=== PATIENT | female | born 1960 | race Caucasian/White ===

== ENCOUNTER → 2017-11-23 15:25 | Outpatient (REF) | payer MEDICARE, MEDICAID, SELFPAY ==
[2017-11-23 19:00] LABS: Basophils % 0.3 % (0.1-2.0); Eosinophils # 0.1 K/mm3 (0.0-0.4); Eosinophils % 0.8 % (0.1-12.0); Hematocrit 37.8 % (37.0-47.0); Hemoglobin 12.1 g/dL (12.2-16.2); Lymphocytes # 2.9 K/mm3 (0.7-4.5); Lymphocytes % 28.9 K/mm3 (10-50); Mean Corpuscular HGB Conc 32.1 g/dL (31.8-35.4); Mean Corpuscular Hemoglobin 31.2 pg (27.0-31.2); Mean Corpuscular Volume 97.2 fl (81-99); Mean Platelet Volume 8.9 fl (7.4-10.4); Monocytes # 0.5 K/mm3 (0.1-1.0); Monocytes % 5.1 % (1.7-9.3); Neutrophils # 6.5 K/mm3 (1.8-7.8); Neutrophils % 64.9 % (37.0-80.0); Platelet Count 281 K/mm3 (142-424); Red Blood Count 3.88 M/mm3 (4.20-5.40); Red Cell Distribution Width 12.8 % (11.5-17.5)
[2017-11-23 19:56] LABS: Alanine Aminotransferase 19 U/L (12-78); Albumin Level 3.5 gm/dL (3.4-5.0); Albumin/Globulin Ratio 0.9 (1.1-1.8); Alkaline Phosphatase 76 U/L (46-116); Anion Gap 16.2 mEq/L (5-15); Aspartate Amino Transferase 14 U/L (15-37); Bilirubin,Total 0.2 mg/dL (0.2-1.0); Blood Urea Nitrogen 14 mg/dL (7-18); Calcium 8.6 mg/dL (8.5-10.1); Carbon Dioxide 24 mmol/L (21.0-32.0); Chloride 102 mmol/L (98-107); Creatinine,Serum 0.93 mg/dL (0.55-1.02); Estimated Glomerular Filt Rate 62 ml/min (>60); Free T4 (Free Thyroxine) 1.15 ng/dl (0.76-1.46); GFR (African American) 75 ML/MIN (>60); Globulin 3.8 gm/dl (1.3-3.2); Glucose 73 mg/dL (74-106); Potassium 5.2 mmoL/L (3.5-5.1); Sodium 137 mmol/L (136-145); Thyroid Stimulating Hormone 0.91 uIU/ml (0.358-3.740); Total Protein,Serum 7.3 gm/dL (6.4-8.2)
[2017-11-23 20:35] LABS: Hemoglobin A1C 6.4 % (0.0-7.0)
[2017-11-25 08:24] LABS: Hep A Ab, IgM Negative (Negative); Hepatitis B Core Antibody IgM Negative (Negative); Hepatitis B Surface Antigen Negative (Negative)
[2017-11-26 06:26] LABS: Hepatitis C Antibody >11.0 s/co ratio (0.0-0.9)
== END ==
LOC: LAB 15:25
PROVIDERS: Visit Provider Emergency Medicine
DX: E11.9 Type 2 diabetes mellitus without complications (principal); R53.83 Other fatigue; R35.0 Frequency of micturition
CPT/HCPCS: 80053; 80074; 83036; 84439; 84443; 85025; 87086

== ENCOUNTER → 2017-11-29 15:21 | Outpatient (REF) | payer MEDICARE, MEDICAID, SELFPAY | LOC: LAB 15:21 | PROVIDERS: Visit Provider Emergency Medicine | DX: R76.8 Other specified abnormal immunological findings in serum (principal); R94.5 Abnormal results of liver function studies | CPT/HCPCS: 87522 ==

== ENCOUNTER → 2017-12-07 11:00 | Outpatient (CLI) | payer MEDICARE, MEDICAID, SELFPAY ==
--- NOTE | 2017-12-07 16:38 | MM_ITS ---
MM Dig screening mamm BI w/CAD CAD Screening ORDERING PHYSICIAN : Murray Chapman MD PATIENT AGE: 57 years GENDER: Female COMPARISON: Previous mammograms: May 2016, 2014, 2014 also June 2009 film screen study INDICATION: Routine screening. No hormones no new complaints. Noncontributory family history TECHNIQUE: Standard CC and MLO images were obtained. R2 CAD reviewed. FINDINGS: Moderately dense breast tissue is seen towards the superior right and left breast. However the overall pattern is similar to previous studies. Follow-up RIGHT BREAST:The same pattern of dense tissue is observed no significant new findings. Stable minimal nodularity upper-outer quadrant LEFT BREAST:Dense tissue in the deep central breast is stable. IMPRESSION: Stable bilateral mammogram no new areas concern. Bilateral follow-up one year recommended BI-RADS Category: 2 Benign Finding(s) RECOMMENDED FOLLOW-UP: 1YR - 1 YEAR FOLLOW-UP (A letter has been sent to the patient regarding results of the study.)
== END ==
PROVIDERS: PCP Emergency Medicine; Visit Provider Emergency Medicine
DX: Z12.31 Encounter for screening mammogram for malignant neoplasm of breast (principal)
CPT/HCPCS: 77067

== ENCOUNTER → 2017-12-10 08:35 | Outpatient (CLI) | payer MEDICARE, MEDICAID, SELFPAY ==
[2017-12-10 09:03] LABS: Blood Urea Nitrogen 13 mg/dL (7-18); Creatinine,Serum 1.06 mg/dL (0.55-1.02); Estimated Glomerular Filt Rate 54 ml/min (>60); GFR (African American) 65 ML/MIN (>60)
--- NOTE | 2017-12-10 09:29 | CT_ITS ---
CT abdomen pelvis wo/w con COMPARISON: CT scan abdomen pelvis 05/13/2012 HISTORY: Hematuria TECHNIQUE: Multiaxial scans obtained from hemidiaphragms to the pelvic floor and were performed initially without IV contrast followed by repeat scans after injection of IV contrast. No oral contrast was used. Sagittal and coronal reformats were evaluated as well. FINDINGS: The lower lung martinez are clear. Cardiac size is normal. The liver spleen stomach and pancreas appear normal. There has been a previous cholecystectomy. The adrenal glands are normal. The kidneys are normal size and there are no calculi and is no obstructive uropathy. Following IV contrast of a symmetrical function of both kidneys. There are no definite calculi seen along the course of either ureter. Small bowel appears normal. I do not definitely identify the appendix but there are no pericecal inflammatory changes. There is large amount stool in the cecum and ascending colon and transverse colon. The uterus is normal in size and retroverted. Urinary bladder is decompressed but otherwise appears normal. There is no free fluid in the pelvis. IMPRESSION: Findings of mild constipation, no definite renal or ureteral calculi identified
--- NOTE | 2017-12-10 11:16 | HMH.ITSHM ---
alondronate losartan cipadaloxacin levothryroxine janumet gapapentin diazepam
== END ==
PROVIDERS: Family Provider Family Medicine; PCP Emergency Medicine; Visit Provider Urology
DX: R31.9 Hematuria, unspecified (principal)
CPT/HCPCS: 36415; 74170; 82565; 84520; Q9967

== ENCOUNTER 2017-12-21 08:25 | Day surgery (SDC) | payer MEDICARE, MEDICAID, SELFPAY ==
[2017-12-21] VITALS (10 sets, daily range): BP systolic 72–120; BP diastolic 47–64; PULSE 62–85; RESP 14–20; TEMP 36.7–37.3; O2SAT 96–99; BMI 24.5
[2017-12-21 09:21] LABS: POC Glucose,Bedside 98 mg/dL (70-110)
--- NOTE | 2017-12-21 09:47 | P.PN_ITS ---
[facility] Anesthesia Checklist - Structural Data Admitted From: Home Planned Operative Procedure/s: cystoscopy Consent for Planned Operative Procedure(s) Verified: Yes Verified Documents: Surgical Consent - Airway Assessment C-Spine Mobility Assessed: Yes TMJ Mobility Assessed: Yes Dentition: Edentulous - Neurological Assessment Level of Consciousness: Awake, Alert - Anesthesia Plan Anesthesia Risk discussed: Yes Anesthesia Plan: Verified ASA Class: III Anesthesia Type: General [facility] Anesthesia HX I have reviewed the patient's past medical history: Yes Medical History: Reports:: Anxiety, Diabetes Mellitus Type 2, Hyperlipidemia, Hypertension Denies:: Cancer, Diabetes Mellitus Type 1, Internal Pacemaker, MRSA, Seizures Other Medical History: Reports: Hypothyroidism, Other. Denies: Blood Transfusion Reaction Laterality Cases: Left: Arthroscopy Knee Other Surgeries: Yes: Angiogram, Cardiac Surgery, Mitral Valve Replacement, Other. No: Pacemaker Amputation: No Fractures: Yes *Family Hx:: Cancer, Hypertension
--- NOTE | 2017-12-21 10:59 | P.PN_ITS ---
[facility] Anesthesia Record Part I Intake, IV Amount: 1,000 Estimated blood loss (mL): 0 Urine output (mL): 0 Blood Pressure: 120/55 SaO2: 96 Pulse Rate: 85 Respiratory Rate: 14 Temperature: 98.0 F Patient is:: Awake, Stable Stable to PACU at:: 10:55
--- NOTE | 2017-12-21 10:59 | HMH.ANESII ---
[facility] Anesthesia Record Part II Discharge Time: 11:25 Destination: [facility] PACU nurse assessment reviewed?: Yes Patient Condition:: Good Anesthesia Complications:: None
--- NOTE | 2017-12-21 11:00 | P.PN_ITS ---
[facility] Anesthesia Record Part II Discharge Time: 11:25 Destination: [facility] PACU nurse assessment reviewed?: Yes Patient Condition:: Good Anesthesia Complications:: None
--- NOTE | 2017-12-21 12:53 | HMH.OPNOTE ---
Date of procedure: 12/21/17 Pre-op Diagnosis:: hematuria/ urinary frequency Post-op Diagnosis:: Same with urethral stenosis Procedure performed:: Cystoscopy with urethral dilation and vaginoscopy Surgeon:: Moiz Patel MD TYING MACHINE OPERATOR:: Abhishek Malone Anesthesia: GETA Estimated blood loss (mL): 0 Clinical Note:: Patient is here for evaluation of reported blood on the toilet paper after voiding. sHe also has history of urinary frequency been on oxybutynin chloride with slight improvement. Is here today for cystoscopy. She has a very long smoking history. Is never had bloody urine. Operative findings:: Normal cystoscopy other than moderate urethral stenosis Operative note:: After satisfactory general anesthesia she was carefully placed in the dorsolithotomy position. The genital area was prepped and draped in normal fashion. He did have a thin whitish vaginal discharge prior to prep. External genitalia was otherwise unremarkable. A 20 [place] cystoscopy sheath was introduced with the obturator. The bladder was inspected with both 30 and 70? lenses. There were no mucosal abnormalities. Ureteral orifice ease were situated in the normal position and appeared to effluxed clear urine. The urethra was snug on the 20 [place] cystoscopy sheath. Bladder was drained and cystoscope removed. Xylocaine jelly was instilled in the urethra. The urethra was calibrated up to 28 [place] with the [place] sounds. Vaginoscopy was performed. No obvious vaginal masses. She appear to have some fluid arising from the right apex of the vagina. this may be the vaginal cuff. Condition: stable Disposition: PACU Complications:: None, I recommend she see gynecology for further evaluation of her vaginal discharge. Is placed on Bactrim double strength twice daily for 2 weeks. She will follow-up with me in 1 month
--- NOTE | 2017-12-21 12:59 | P.OP_ITS ---
Date of procedure: 12/21/17 Pre-op Diagnosis:: hematuria/ urinary frequency Post-op Diagnosis:: Same with urethral stenosis Procedure performed:: Cystoscopy with urethral dilation and vaginoscopy Surgeon:: Moiz Patel MD BRAZING MACHINE TENDER:: Abhishek Malone Anesthesia: GETA Estimated blood loss (mL): 0 Clinical Note:: Patient is here for evaluation of reported blood on the toilet paper after voiding. sHe also has history of urinary frequency been on oxybutynin chloride with slight improvement. Is here today for cystoscopy. She has a very long smoking history. Is never had bloody urine. Operative findings:: Normal cystoscopy other than moderate urethral stenosis Operative note:: After satisfactory general anesthesia she was carefully placed in the dorsolithotomy position. The genital area was prepped and draped in normal fashion. He did have a thin whitish vaginal discharge prior to prep. External genitalia was otherwise unremarkable. A 20 Iranian cystoscopy sheath was introduced with the obturator. The bladder was inspected with both 30 and 70? lenses. There were no mucosal abnormalities. Ureteral orifice ease were situated in the normal position and appeared to effluxed clear urine. The urethra was snug on the 20 Iranian cystoscopy sheath. Bladder was drained and cystoscope removed. Xylocaine jelly was instilled in the urethra. The urethra was calibrated up to 28 [place] with the [place] sounds. Vaginoscopy was performed. No obvious vaginal masses. She appear to have some fluid arising from the right apex of the vagina. this may be the vaginal cuff. Condition: stable Disposition: PACU Complications:: None, I recommend she see gynecology for further evaluation of her vaginal discharge. Is placed on Bactrim double strength twice daily for 2 weeks. She will follow-up with me in 1 month
== END 2017-12-21 12:25 | disposition home or self-care (01) ==
LOC: OR 08:27
PROVIDERS: Family Provider Family Medicine; PCP Emergency Medicine; Visit Provider Urology
PROC: 0TBB8ZX Excision of Bladder, Via Natural or Artificial Opening Endoscopic, Diagnostic (ICD-10-PCS; CPT 52204; principal; 2017-12-21 10:00)
DX: N35.9 Urethral stricture, unspecified (principal); N89.8 Other specified noninflammatory disorders of vagina; E11.9 Type 2 diabetes mellitus without complications; Z79.899 Other long term (current) drug therapy; Z72.0 Tobacco use
CPT/HCPCS: 52281; 57452; 82962; J1956

== ENCOUNTER → 2017-12-29 09:03 | Outpatient (CLI) | payer MEDICARE, MEDICAID, SELFPAY ==
[2017-12-29 13:56] LABS: Amphetamine/Metha Screen,Urine Negative ng/mL (<1000); Barbiturates Screen,Urine Negative ng/mL (<200); Benzodiazepines Screen,Urine Positive ng/mL (200); Cannabinoid Screen,Urine Positive ng/mL (<50); Cocaine Screen,Urine Negative ng/g (<300); Methadone Screen,Urine Negative ng/mL (<300); Opiate Screen,Urine Positive ng/mL (<300); Phencyclidine Screen,Urine Negative ng/mL (<25)
== END ==
PROVIDERS: Visit Provider Emergency Medicine
DX: Z79.899 Other long term (current) drug therapy (principal)
CPT/HCPCS: 80305

== ENCOUNTER → 2018-01-12 10:16 | Outpatient (REF) | payer MEDICARE, MEDICAID, SELFPAY ==
[2018-01-12 19:13] LABS: Amphetamine/Metha Screen,Urine Negative ng/mL (<1000); Barbiturates Screen,Urine Negative ng/mL (<200); Benzodiazepines Screen,Urine Positive ng/mL (200); Cannabinoid Screen,Urine Positive ng/mL (<50); Cocaine Screen,Urine Negative ng/g (<300); Methadone Screen,Urine Negative ng/mL (<300); Opiate Screen,Urine Positive ng/mL (<300); Phencyclidine Screen,Urine Negative ng/mL (<25)
== END ==
LOC: LAB 10:16
PROVIDERS: Visit Provider Emergency Medicine
DX: Z79.899 Other long term (current) drug therapy (principal)
CPT/HCPCS: 80305

== ENCOUNTER 2018-01-19 13:30 | Outpatient (RCR) | payer MEDICARE, MEDICAID, SELFPAY ==
--- NOTE | 2017-12-20 11:39 | HMH.PTOPEV ---
Rehab Outpatient Evaluation Rehab OP Evaluation Start: 12/20/17 11:31 Freq: Status: Active Protocol: Document 12/20/17 11:31 RAYSHAWN (Rec: 12/20/17 11:38 RAYSHAWN [id number]) Electronically Signed By Bobby Alvarez, PT 12/20/17 11:31 Outpatient Therapy Subjective History Subjective History Pt reports h/o chronic LBP for ~5 yrs. Pt reports insidious onset with this most recent episode of LBP beginning ~3 months, which pt reports radiates from midline into R and L lumbar paraspinals. Pt reports recent MRI of lumbar spine, but is unsure of results. Chief Complaint Pain Stiff Symptom Type Ache Throb Sharp Dull Numbness Tingling Symptoms Relieved By Nothing Symptoms Aggravated By Sitting Standing Walking Lifting Prior Functional Limitations Lifting Housework Sleeping Standing Sitting Walking Bending/Stooping Current Functional Limitations Lifting Housework Sleeping Standing Sitting Walking Bending/Stooping Symptom Description Constant and Continuous Level of pain today (0-10) 5 Pain scale - at its best (0-10) 5 Pain scale - at its worst (0-10) 8 Lumbopelvic Eval Posture Thoracic Spine Posture Standing Position Flattened Lumbar Spine Posture Standing Position Flattened Assistive device Assistive Devices Straight Cane Gait Observation General Gait Pattern Observation Antalgic Gait Palapation tenderness bilateral thoracic spinal tenderness Yes: 3/4 lumbar spinal tenderness Yes: 3/4 paraspinal tenderness Yes: 3/4 buttock tenderness Yes: 3/4 Accessory Movement T-spine Vertebrae Accessory Movements Central P/A [place] that Elicit Symptoms T10 bilateral T11 bilateral T12 bilateral
--- NOTE | 2018-01-17 15:49 | HMH.RHREAS ---
Rehab Reassessment Rehab OP Re-assessment Start: 01/17/18 15:38 Freq: Status: Active Protocol: Document 01/17/18 15:38 RAYSHAWN (Rec: 01/17/18 15:49 RAYSHAWN [id number]) Electronically Signed By Bobby Alvarez, PT 01/17/18 15:38 Rehab Re-assessment Subjective Subjective Pt reports 4/10 LBP on VAS, and feels 75% better since I EVAL Objective Objective Notes AROM: L-SPINE FLX 0-50, EXT 0- 10, L SB 0-18, R SB 0-25 MMT: B HIP FLX 4/5, B KNEE EXT 5/5, B KNEE FLX 4+/5, R DF 5/ 5, L DF 4/5 TTP: B LUMBAR PARA. 2/4, B PIRI MM 1/4 Assessment Progress Assessment Progressing as Expected Assessment Notes PT W/IMPROVED ROM, STRENGTH, AND TTP Patient goals met STGS 6/7 LTGS 8 Goals Not Met STGS 10/10, LTGS 04/10 Plan Plan PT TO CONT. W/SKILLED P.T. TO MAKE FURTHER IMPROVEMENTS W/ ROM, STRENGTH, AND TTP TO ALLOW FOR OPTIMAL FUNCTION Frequency of Therapy 1-2X/WK Duration of therapy 2-4 WEEKS Time and Billing Re-Eval Time 15 Re-Eval Billing Units 1 PHYSICIAN CERTIFICATION: I certify the specified therapy services for Vanesa Massey are required, authorized, and reviewed every 30 days.
== END 2018-01-19 13:31 | disposition home or self-care (01) ==
LOC: PT 13:30
PROVIDERS: Family Provider Family Medicine; PCP Emergency Medicine; Visit Provider Emergency Medicine
DX: M54.9 Dorsalgia, unspecified (principal)
CPT/HCPCS: 97010; 97014; 97035; 97110; 97164; G0283

== ENCOUNTER 2018-01-27 08:19 | Observation (INO) ==
[2018-01-27 08:38] LABS: Basophils # 0.1 K/mm3 (0-0.2); Basophils % 0.4 % (0.1-2.0); Eosinophils # 0.1 K/mm3 (0.0-0.4); Eosinophils % 0.3 % (0.1-12.0); Hematocrit 43.4 % (37.0-47.0); Hemoglobin 13.3 g/dL (12.2-16.2); Lymphocytes # 3.9 K/mm3 (0.7-4.5); Lymphocytes % 23.5 K/mm3 (10-50); Mean Corpuscular HGB Conc 30.7 g/dL (31.8-35.4); Mean Corpuscular Hemoglobin 30.8 pg (27.0-31.2); Mean Corpuscular Volume 100.3 fl (81-99); Mean Platelet Volume 7.7 fl (7.4-10.4); Monocytes % 5.8 % (1.7-9.3); Neutrophils # 11.4 K/mm3 (1.8-7.8); Platelet Count 442 K/mm3 (142-424); Red Blood Count 4.33 M/mm3 (4.20-5.40); White Blood Count 16.3 K/mm3 (4.8-10.8)
[2018-01-27 09:00] LABS: Albumin Level 4.4 gm/dL (3.4-5.0); Albumin/Globulin Ratio 0.9 (1.1-1.8); Anion Gap 21.1 mEq/L (5-15); Bilirubin,Total 0.3 mg/dL (0.2-1.0); Calcium 9.7 mg/dL (8.5-10.1); Globulin 4.8 gm/dl (1.3-3.2); Potassium 4.1 mmoL/L (3.5-5.1); Salicylate 4.3 mg/dL (2.8-20.0); Thyroid Stimulating Hormone 1.75 uIU/ml (0.358-3.740); Total Protein,Serum 9.2 gm/dL (6.4-8.2)
[2018-01-27 09:33] LABS: Lymphocytes % 19 % (10-50); Monocytes % 4 % (2-9); Neutrophils % 75 % (42-76); Total Cells Counted 100
--- NOTE | 2018-01-27 11:18 | Emergency Department Note ---
ED Disposition Clinical Impression: Dehydration, Sinus tachycardia, Ted, Iatrogenic hypotension Acute renal failure (ARF) Qualifiers: Acute renal failure type: unspecified Qualified Code(s): N17.9 - Acute kidney failure, unspecified Disposition: Admitted As Inpatient Condition on Discharge: Fair Time of Disposition: 11:50 - Critical Care Critical Care Time: Yes Attestation: On 01/27/18, the high probability of a clinically significant, sudden or life threatening deterioration of the following system(s) required my full and direct attention, intervention and personal management. The time I documented below is in addition to time spent performing reported procedures but includes the following listed in this critical care notation. Total Critical Care Time: 120 Vital system(s) involved:: Renal Failure My critical care processes included: Assessment & monitoring of V/S, Initial and Re-exams, Data Review/Interpretation, Coordinating Care, Medication Orders and management, Documentation Medical Decision Making - Medical Records Medical records reviewed: Yes: I reviewed the patient's medical records. - Willie Inquiry Pt receiving controlled substance: No Vital Signs: 01/27/18 08:20 01/27/18 10:50 01/27/18 13:05 Temperature 99.2 F 99.2 F Temperature Source Oral Oral Pulse Rate 70 Pulse Rate [Left Radial] 134 H Respiratory Rate 24 20 Blood Pressure 104/66 Blood Pressure [Right Arm] 154/110 104/66 Blood Pressure Mean [Right Arm] 124 78 Blood Pressure Source Automatic Cuff Blood Pressure Source [Right Arm] Automatic Cuff Blood Pressure Position Sitting Blood Pressure Position [Right Arm] Sitting 02 Sat by Pulse Oximetry 97 Oxygen Delivery Method Room Air Room Air 01/27/18 13:30 Temperature Temperature Source Pulse Rate Pulse Rate [Left Radial] 68 Respiratory Rate 16 Blood Pressure Blood Pressure [Right Arm] 94/65 Blood Pressure Mean [Right Arm] 74 Blood Pressure Source Blood Pressure Source [Right Arm] Automatic Cuff Blood Pressure Position Blood Pressure Position [Right Arm] Sitting 02 Sat by Pulse Oximetry 94 L Oxygen Delivery Method Room Air - Lab Data Lab results reviewed: Yes: I reviewed the patient's lab results. Lab Results 01/27/18 08:15: WBC 16.3 H, RBC 4.33, Hgb 13.3, Hct 43.4, MCV 100.3 H, MCH 30.8 , MCHC 30.7 L, RDW 14.0, Plt Count 442 H, MPV 7.7, Neut % (Auto) 70.0, Lymph % ( Auto) 23.5, Haines % (Auto) 5.8, Eos % (Auto) 0.3, Baso % (Auto) 0.4, Neut # (Auto ) 11.4 H, Lymph # (Auto) 3.9, Haines # (Auto) 1.0, Eos # (Auto) 0.1, Baso # (Auto ) 0.1, Total Counted 100, Neutrophils % (Manual) 75, Band Neutrophils % 2.0, Lymphocytes % (Manual) 19, Monocytes % (Manual) 4, Platelet Estimate Slight increase 01/27/18 08:15: Sodium 139, Potassium 4.1, Chloride 100, Carbon Dioxide 22, Anion Gap 21.1 H, BUN 25 H, Creatinine 2.19 H, Estimated Creat Clear 38, Estimated GFR 23 L, Est GFR ( Amer) 28 L, Glucose 142 H, Calcium 9.7, Total Bilirubin 0.3, AST 24, ALT 20, Alkaline Phosphatase 83, Total Protein 9.2 H D, Albumin 4.4, Globulin 4.8 H, Albumin/Globulin Ratio 0.9 L, TSH 1.75 D, Salicylates 4.3, Acetaminophen 0 L Result diagrams: 01/27/18 08:15 01/27/18 08:15 Orders (Tests/Meds): ED MEDICATIONS Generic Name Dose Route Start Last Admin Trade Name Freq PRN Reason Stop Dose Admin Hydrocodone Bitart/Acetaminophen 1 tab 01/27/18 13:58 [place] 5/325mg Tablet PO 02/26/18 13:57 TID PRN Moderate Pain Atorvastatin Calcium 20 mg 01/28/18 09:00 Lipitor 20mg Tablet PO 02/27/18 08:59 DAILY MAMTA Fluoxetine HCl 30 mg 01/28/18 09:00 Prozac 10mg Capsule PO 02/27/18 08:59 DAILY MAMTA Gabapentin 800 mg 01/27/18 13:58 01/27/18 15:46 Neurontin 400mg Capsule PO 02/26/18 13:57 800 mg TID MAMTA Administration Lactated Ringer's 1,000 mls @ 125 mls/hr 01/27/18 13:58 01/27/18 16:15 Lactated Ringer's 1000 Ml Bag IV 02/26/18 13:57 125 mls/hr .Q8H MAMTA Administration Irbesartan 150 mg 01/28/18 09:00 Avapro 150mg Tablet PO 02/27/18 08:59 DAILY MAMTA Levothyroxine Sodium 25 mcg 01/28/18 09:00 Synthroid 25mcg (0.025mg) Tablet PO 02/27/18 08:59 DAILY MAMTA Nystatin 0 gm 01/27/18 16:15 01/27/18 16:15 Nystatin Cr 100,000 Units/Gm 30gm TP 02/26/18 16:14 30 gm BID MAMTA Administration Oxybutynin Chloride 10 mg 01/28/18 09:00 Ditropan 5mg Tablet PO 02/27/18 08:59 DAILY MAMTA Sodium Chloride 10 ml 01/27/18 13:58 Saline Flush 10ml Syringe IV 02/26/18 13:57 NEEDED PRN Maintain IV Site Discontinued Medications Generic Name Dose Route Start Last Admin Trade Name Freq PRN Reason Stop Dose Admin Haloperidol Lactate 5 mg 01/27/18 09:28 01/27/18 09:30 Haldol 5mg/Ml Vial IM 01/27/18 09:29 5 mg ONCE ONE Administration Sodium Chloride 500 mls @ 999 mls/hr 01/27/18 08:30 01/27/18 08:31 Sod Chlor 0.9% 1000ml Bag IV 01/27/18 09:00 999 mls/hr .Q31M MAMTA Administration Sodium Chloride 500 mls @ 999 mls/hr 01/27/18 09:00 01/27/18 09:03 Sod Chlor 0.9% 1000ml Bag IV 01/27/18 09:30 Not Given .Q31M MAMTA Sodium Chloride 500 mls @ 999 mls/hr 01/27/18 09:00 01/27/18 09:03 Sod Chlor 0.9% 1000ml Bag IV 01/27/18 09:30 Not Given .Q31M MAMTA Lactated Ringer's 1,000 mls @ 999 mls/hr 01/27/18 09:15 01/27/18 09:40 Lactated Ringer's 1000 Ml Bag IV 01/27/18 10:15 999 mls/hr .Q1H1M MAMTA Administration Lactated Ringer's 1,000 mls @ 999 mls/hr 01/27/18 09:15 01/27/18 11:19 Lactated Ringer's 1000 Ml Bag IV 01/27/18 10:15 999 mls/hr .Q1H1M MAMTA Administration Lactated Ringer's 1,000 mls @ 999 mls/hr 01/27/18 09:15 01/27/18 10:41 Lactated Ringer's 1000 Ml Bag IV 01/27/18 10:15 999 mls/hr .Q1H1M MAMTA Administration Lactated Ringer's 1,000 mls @ 999 mls/hr 01/27/18 13:15 01/27/18 13:24 Lactated Ringer's 1000 Ml Bag IV 01/27/18 14:15 999 mls/hr .Q1H1M MAMTA Administration Lactated Ringer's 1,000 mls @ 999 mls/hr 01/27/18 13:58 01/27/18 15:38 Lactated Ringer's 1000 Ml Bag IV 01/27/18 14:15 999 mls/hr .Q1H1M MAMTA Administration Non-Formulary Medication 70 mg 01/27/18 13:58 Alendronate Sodium [Fosamax] PO 02/26/18 13:57 QWEEK MAMTA Non-Formulary Medication 1 tab 01/27/18 21:00 Sitagliptin Phos/Metformin Hcl [Janumet 50-500 Mg Tablet] PO 02/26/18 20:59 BID MAMTA Ziprasidone 20 mg 01/27/18 08:29 01/27/18 09:03 Geodon 20mg Capsule PO 01/27/18 08:30 20 mg ONCE ONE Administration ORDERS Category Date Time Status Urine Culture(cathed specimen) Routine Micro 01/27/18 13:35 Received - Physician Consults Physician Consulted: BALTA Griffin covering for Dr Chapman Time: 11:10 Reason -: Admission, Pt condition Comment/Response: Advise of patient's presentation and findings, agreeable with hospitalization. - Reevaluation(s) Time: 10:45 Reevaluation #1: Patient asleep, hypertensive after receiving Haldol and Geodon, will continue to bolus her with IV fluids. She appears clinically dehydrated, with dry mucous membranes, tachycardic, clearly in need of iv fluids. Psych HPI - General Chief Complaint: Psychiatric Symptoms Stated Complaint: psych Time Seen by Provider: 01/27/18 09:10 Mode of Arrival: Ambulatory Source of Information: Patient Limitations: No Limitations Description of Symptoms (Recalled from ER Triage Doc. by RN): to ed per ambulance police called squad due to abnormal behavior. pt admits manic behavior denies any c/o - History of Present Illness HPI Narrative: This is a 57-year-old female patient brought to the emergency room by EMS [place] the [place] in a state of agitation, manic, rambling. Patient advised that she ran out of money and she could not afford to go to the pharmacy to pickle maker her medications or eat for the past few days. She is very poor historian. She has a history of bipolar disorder. He denies any suicidal or homicidal ideation. She displays obvious flight of ideas. Onset (ago): day(s) (2) History of same: Yes Relieving factors: none Exacerbating factors: none Context: not taking psychiatric medications Associated psychiatric symptoms: racing thoughts Associated symptoms: denies other symptoms Treatments prior to arrival: none - Related Data Home Medications Medication Instructions Recorded Confirmed oxybutynin chloride ER 10 mg 10 mg PO DAILY tab 11/16/17 01/27/18 tablet,extended release 24 hr sitagliptin 50 mg-metformin 500 mg 1 tab PO BID 11/16/17 01/27/18 tablet Fluoxetine HCl 30 mg PO DAILY 12/21/17 01/27/18 alendronate 70 mg tablet 70 mg PO WEEKLY 12/29/17 01/27/18 Atorvastatin Calcium [Lipitor 20mg 20 mg PO DAILY 01/27/18 01/27/18 Tablet] Previous Rx's Medication Instructions Recorded gabapentin 800 mg tablet 800 mg PO TID 30 Days #90 tab 12/29/17 losartan 100 mg tablet 100 mg PO DAILY #90 tab 01/11/18 hydrocodone 5 mg-acetaminophen 325 1 tab PO TID PRN 21 Days #63 tab 01/12/18 mg tablet levothyroxine 25 mcg tablet 25 mcg PO DAILY 90 Days #90 tab 01/25/18 Allergies Allergy/AdvReac Type Severity Reaction Status Date / Time aspirin [ASPIRIN] Allergy Mild Verified 01/12/18 15:54 Penicillins Allergy Mild Verified 01/12/18 15:54 [facility] History I have reviewed the patient's past medical history: Yes Medical History: Reports:: Anxiety, Diabetes Mellitus Type 2, Hyperlipidemia, Hypertension Denies:: Cancer, Diabetes Mellitus Type 1, Internal Pacemaker, MRSA, Seizures Other Medical History: Reports: Hypothyroidism, Other. Denies: Blood Transfusion Reaction Comment: Hep C,. Aortic aneurysm. Hypercholesterolemia Laterality Cases: Left: Arthroscopy Knee Other Surgeries: Yes: Angiogram, Cardiac Surgery, Mitral Valve Replacement, Other. No: Pacemaker Amputation: No Fractures: Yes Comment: 1973- Heart surgery valve problems. 2001- Lt. broken leg. 2005- Lap Cholecystectomy. 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 - Social History Smoking Status: Current every day smoker Tobacco Type: cigarettes # Packs/Day (cigarettes): 20 Alcohol Intake: never Substance Use Type: marijuana Occupational Status: disabled Housing: apartment Household Members: none - Psychiatric History Expresses thoughts of harming self/others: None Suicide Plan Description: No Plan Pschychiatric History:: Reports:: Anxiety Family Hx:: Cancer, Hypertension ROS Obtained: Yes All systems reviewed & no additional complaints, Yes Systems reviewed as appropriate & no additional complaints - Neurologic Neurologic: Reports system reviewed and no additional complaints, except as docu , Reports as per HPI, Reports other (ted, agitation) Physical Exam - General General appearance: alert, in distress (moderate) - Head Head exam: atraumatic, normocephalic, normal inspection - Eye Eye exam: Present: normal appearance, PERRL, EOMI, other (normal fundi) - Neck Neck exam: Present: normal inspection, full ROM, trachea midline. Absent: meningismus, lymphadenopathy - Chest Chest inspection: Present: normal inspection, symmetric chest wall rise. Absent : tenderness - Respiratory Respiratory exam: Present: normal lung sounds bilaterally. Absent: respiratory distress - Cardiovascular Cardiovascular exam: Present: tachycardia, normal heart sounds. Absent: JVD - Abdominal Exam Abdominal exam: Present: soft, normal bowel sounds. Absent: distention, tenderness, guarding - Extremities Exam Extremities exam: Present: normal inspection, full ROM, normal capillary refill. Absent: calf tenderness - Back Exam Back exam: Present: normal inspection. Absent: tenderness - Neurological Exam Neurological exam: Present: alert, oriented X3, CN II-XII intact, other (manic, flight of ideas) - Psychiatric Psychiatric exam: Present: agitated, anxious, manic - Skin Skin exam: Present: warm, dry, intact, normal color
[2018-01-27 13:47] LABS: Microscopic, Urine URINE MICROSCOPIC (MICROSCOPIC)
[2018-01-27 13:52] LABS: Appearance,Urine CLEAR (Clear); Bilirubin,Urine Negative (Negative); Blood, Urine Negative (Negative); Color,Urine ORANGE (Yellow); Glucose,Urine (UA) TRACE (Negative); Ketones,Urine Negative (Negative); Leukocyte Esterase,Urine TRACE (Negative); PH,Urine 5.5 (5.0-8.5); Protein,Urine 1+ (Negative)
[2018-01-27 13:57] LABS: Amphetamine/Metha Screen,Urine Positive ng/mL (<1000); Barbiturates Screen,Urine Negative ng/mL (<200); Benzodiazepines Screen,Urine Positive ng/mL (200); Cannabinoid Screen,Urine Positive ng/mL (<50); Cocaine Screen,Urine Negative ng/g (<300); Methadone Screen,Urine Negative ng/mL (<300); Opiate Screen,Urine Positive ng/mL (<300); Phencyclidine Screen,Urine Negative ng/mL (<25)
[2018-01-27 14:03] LABS: Bacteria,Urine Trace /lpf; Coarse Granular Casts,Urine Occasional #/lpf (0); Fine Granular Casts,Urine Occasional #/lpf (0); Mucus,Urine 1+ /lpf
--- NOTE | 2018-01-27 15:57 | Pharmacy Consult Notes ---
[facility] Pharmacy VTE Monitoring - Patient Demographics Admission date: 01/27/18 Report Date: 01/27/18 Time: 15:57 Allergies/Adverse Reactions: Patient Allergies aspirin [ASPIRIN] Allergy (Mild, Verified 01/12/18 15:54) Penicillins Allergy (Mild, Verified 01/12/18 15:54) Height: 1.68 m Weight: 74.616 kg Patient Problems: Current Active Problems (Last Updated 01/25/18 @ 12:21 by BALTA Longoria) Dehydration (Acute) Sinus tachycardia (Acute) Hanna (Acute) Acute renal failure (ARF) (Acute) - VTE Risk Labs: VTE Related Lab Results Hgb 13.3 g/dL (12.2-16.2) 01/27/18 08:15 Hct 43.4 % (37.0-47.0) 01/27/18 08:15 Plt Count 442 K/mm3 (142-424) H 01/27/18 08:15 BUN 25 mg/dL (7-18) H 01/27/18 08:15 Creatinine 2.19 mg/dL (0.55-1.02) H 01/27/18 08:15 Estimated Creat Clear 38 mL/min (0-300) 01/27/18 08:15 VTE Score: 3 VTE Risk Level: Low Risk - Prophylaxis VTE Prophylaxis Ordered?: Yes Types of VTE Prophylaxis: TEDS Knee High Location of Applied Device: Bilateral Lower Extremeties - VTE Diagnosis Confirmed Treatment or plan recommended: Continue Current Treatment
[2018-01-28 09:02] LABS: Albumin Level 2.8 gm/dL (3.4-5.0); Albumin/Globulin Ratio 0.8 (1.1-1.8); Anion Gap 11.4 mEq/L (5-15); Basophils % 0.3 % (0.1-2.0); Bilirubin,Total 0.4 mg/dL (0.2-1.0); Eosinophils # 0.1 K/mm3 (0.0-0.4); Eosinophils % 1.7 % (0.1-12.0); Globulin 3.4 gm/dl (1.3-3.2); Hematocrit 32.3 % (37.0-47.0); Hemoglobin 10.1 g/dL (12.2-16.2); Lymphocytes # 2.6 K/mm3 (0.7-4.5); Lymphocytes % 32.7 K/mm3 (10-50); Mean Corpuscular HGB Conc 31.3 g/dL (31.8-35.4); Mean Corpuscular Hemoglobin 30.9 pg (27.0-31.2); Mean Corpuscular Volume 98.6 fl (81-99); Mean Platelet Volume 7.7 fl (7.4-10.4); Monocytes # 0.5 K/mm3 (0.1-1.0); Neutrophils # 4.7 K/mm3 (1.8-7.8); Neutrophils % 59.3 % (37.0-80.0); Platelet Count 281 K/mm3 (142-424); Potassium 4.4 mmoL/L (3.5-5.1); Red Blood Count 3.27 M/mm3 (4.20-5.40); Red Cell Distribution Width 13.9 % (11.5-17.5); Total Protein,Serum 6.2 gm/dL (6.4-8.2); White Blood Count 7.9 K/mm3 (4.8-10.8)
[2018-01-28 09:09] LABS: Calcium 8.4 mg/dL (8.5-10.1)
--- NOTE | 2018-01-28 09:11 | Discharge Summary ---
General - General Admission date:: 01/27/18 Discharge date: 01/28/18 HPI HPI: 57-year-old female presented to the ER with dehydration, complaints feeling nauseous, per ER note patient was found at a gas station in the state of been made take rambling and agitation. 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 Patient reports she used meth 3 days ago due to not having any meds for her anxiety. Patient admitted for dehydration Hospital Course Hospital Course: Today labs have improved we will discharge patient home. She is alert and oriented this a.m. Dr. Chapman discussed drug screen with patient and medical and medication compliance. Patient will follow up on Wednesday in the office Objective Vital signs: Temp Pulse Resp BP Pulse Ox 97 F L 81 16 103/67 92 L 01/28/18 08:00 01/28/18 08:00 01/28/18 08:00 01/28/18 08:00 01/28/18 08:00 no acute distress - *Routine HEENT Exam Head: Present: normocephalic Eye: Present: PERRL ENT: Present: mucous membranes moist - *Routine Neck Exam Present: full ROM - *Routine Respiratory Exam Present: CTA bilaterally - *Routine Cardiovascular Exam Present: RRR - *Routine Abdominal Exam Present: soft, normoactive bowel sounds - *Routine Extremities Exam Present: full ROM - *Routine Skin Exam Present: intact - *Routine Neurological Exam Present: alert, oriented X3 - Routine Psychiatric Exam Present: normal affect Results Labs on day of discharge: Labs from last 24 hours 01/28/18 01/28/18 01/28/18 08:19 08:19 07:02 WBC 7.9 D RBC 3.27 L Hgb 10.1 L Hct 32.3 L MCV 98.6 MCH 30.9 MCHC 31.3 L RDW 13.9 Plt Count 281 D MPV 7.7 Neut % (Auto) 59.3 Lymph % (Auto) 32.7 Clay % (Auto) 6.0 Eos % (Auto) 1.7 Baso % (Auto) 0.3 Neut # (Auto) 4.7 Lymph # (Auto) 2.6 Clay # (Auto) 0.5 Eos # (Auto) 0.1 Baso # (Auto) 0.0 Total Counted Neutrophils % (Manual) Band Neutrophils % Lymphocytes % (Manual) Monocytes % (Manual) Platelet Estimate Sodium 139 Potassium 4.4 Chloride 107 Carbon Dioxide 25 Anion Gap 11.4 BUN 20 H Creatinine 1.27 H D Estimated Creat Clear 58 Estimated GFR 44 L Est GFR ( Amer) 53 L D Glucose 142 H POC Glucose 97 Calcium 8.4 L D Total Bilirubin 0.4 AST 20 ALT 18 Alkaline Phosphatase 57 Total Protein 6.2 L D Albumin 2.8 L D Globulin 3.4 H Albumin/Globulin Ratio 0.8 L Urine Color Urine Appearance Urine pH Ur Specific Ranger Urine Protein Urine Glucose (UA) Urine Ketones Urine Blood Urine Nitrate Urine Bilirubin Urine Urobilinogen Ur Leukocyte Esterase Urine WBC Ur Squamous Epith Cells Urine Bacteria Hyaline Casts Fine Granular Casts Coarse Granular Casts Urine Mucus Urine Opiates Screen Ur Barbituates Screen Ur Phencyclidine Scrn Ur Amphetamines Screen U Methamphetamines Scrn U Benzodiazepines Scrn Urine Cocaine Screen U Marijuana (THC) Screen 01/27/18 01/27/18 01/27/18 21:29 17:16 13:35 WBC RBC Hgb Hct MCV MCH MCHC RDW Plt Count MPV Neut % (Auto) Lymph % (Auto) Clay % (Auto) Eos % (Auto) Baso % (Auto) Neut # (Auto) Lymph # (Auto) Clay # (Auto) Eos # (Auto) Baso # (Auto) Total Counted Neutrophils % (Manual) Band Neutrophils % Lymphocytes % (Manual) Monocytes % (Manual) Platelet Estimate Sodium Potassium Chloride Carbon Dioxide Anion Gap BUN Creatinine Estimated Creat Clear Estimated GFR Est GFR ( Amer) Glucose POC Glucose 108 188 H Calcium Total Bilirubin AST ALT Alkaline Phosphatase Total Protein Albumin Globulin Albumin/Globulin Ratio Urine Color Urine Appearance Urine pH Ur Specific Ranger Urine Protein Urine Glucose (UA) Urine Ketones Urine Blood Urine Nitrate Urine Bilirubin Urine Urobilinogen Ur Leukocyte Esterase Urine WBC Ur Squamous Epith Cells Urine Bacteria Hyaline Casts Fine Granular Casts Coarse Granular Casts Urine Mucus Urine Opiates Screen Positive H Ur Barbituates Screen Negative Ur Phencyclidine Scrn Negative Ur Amphetamines Screen Positive H U Methamphetamines Scrn Negative U Benzodiazepines Scrn Positive H Urine Cocaine Screen Negative U Marijuana (THC) Screen Positive H 01/27/18 01/27/18 13:35 08:15 WBC RBC Hgb Hct MCV MCH MCHC RDW Plt Count MPV Neut % (Auto) Lymph % (Auto) Clay % (Auto) Eos % (Auto) Baso % (Auto) Neut # (Auto) Lymph # (Auto) Clay # (Auto) Eos # (Auto) Baso # (Auto) Total Counted 100 Neutrophils % (Manual) 75 Band Neutrophils % 2.0 Lymphocytes % (Manual) 19 Monocytes % (Manual) 4 Platelet Estimate Slight increase Sodium Potassium Chloride Carbon Dioxide Anion Gap BUN Creatinine Estimated Creat Clear Estimated GFR Est GFR ( Amer) Glucose POC Glucose Calcium Total Bilirubin AST ALT Alkaline Phosphatase Total Protein Albumin Globulin Albumin/Globulin Ratio Urine Color [place] Urine Appearance Clear Urine pH 5.5 Ur Specific Ranger 1.010 Urine Protein 1+ Urine Glucose (UA) Trace Urine Ketones Negative Urine Blood Negative Urine Nitrate Positive Urine Bilirubin Negative Urine Urobilinogen 2.0 Ur Leukocyte Esterase Trace Urine WBC 5-10 Ur Squamous Epith Cells 3-5 Urine Bacteria Trace Hyaline Casts 3-5 Fine Granular Casts Occasional Coarse Granular Casts Occasional Urine Mucus 1+ Urine Opiates Screen Ur Barbituates Screen Ur Phencyclidine Scrn Ur Amphetamines Screen U Methamphetamines Scrn U Benzodiazepines Scrn Urine Cocaine Screen U Marijuana (THC) Screen - Additional Comments Rounded with Dr. Chapman all orders per Ad[facility] Discharge Plan - Patient Discharge Instructions ACTIVITY: Continue current activity DIET: continue same diet - Follow up Plan Follow up with: Murray Chapman MD [Primary Care Provider] - 01/31/18 Disposition: Home, Self-[facility] Medications: Home Medications Medication Instructions Recorded Confirmed Type oxybutynin chloride ER 10 mg 10 mg PO DAILY tab 11/16/17 01/27/18 History tablet,extended release 24 hr sitagliptin 50 mg-metformin 500 mg 1 tab PO BID 11/16/17 01/27/18 History tablet Fluoxetine HCl 30 mg PO DAILY 12/21/17 01/27/18 History alendronate 70 mg tablet 70 mg PO WEEKLY 12/29/17 01/27/18 History Atorvastatin Calcium [Lipitor 20mg 20 mg PO DAILY 01/27/18 01/27/18 History Tablet] Prescriptions/Medication Reconciliation: Continue sitagliptin 50 mg-metformin 500 mg tablet 1 tab PO BID oxybutynin chloride ER 10 mg tablet,extended release 24 hr 10 mg PO DAILY tab losartan 100 mg tablet 100 mg PO DAILY #90 tab alendronate 70 mg tablet 70 mg PO WEEKLY hydrocodone 5 mg-acetaminophen 325 mg tablet 1 tab PO TID PRN 21 Days #63 tab PRN Reason: pain levothyroxine 25 mcg tablet 25 mcg PO DAILY 90 Days #90 tab Atorvastatin Calcium [Lipitor 20mg Tablet] 20 mg PO DAILY Fluoxetine HCl 30 mg PO DAILY
== END 2018-01-28 09:55 | disposition home or self-care (01) ==
LOC: ER 08:19 → 2ND 08:19
PROVIDERS: ADMIT Emergency Medicine; ATTEND Emergency Medicine

== ENCOUNTER → 2018-01-31 13:38 | Outpatient (REF) | payer MEDICARE, MEDICAID, SELFPAY ==
[2018-01-31 15:09] LABS: Amphetamine/Metha Screen,Urine Negative ng/mL (<1000); Barbiturates Screen,Urine Negative ng/mL (<200); Benzodiazepines Screen,Urine Positive ng/mL (200); Cannabinoid Screen,Urine Positive ng/mL (<50); Cocaine Screen,Urine Negative ng/g (<300); Methadone Screen,Urine Negative ng/mL (<300); Opiate Screen,Urine Negative ng/mL (<300); Phencyclidine Screen,Urine Negative ng/mL (<25)
== END ==
LOC: LAB 13:38
PROVIDERS: Visit Provider Emergency Medicine
DX: F32.9 Major depressive disorder, single episode, unspecified (principal); Z79.899 Other long term (current) drug therapy
CPT/HCPCS: 80305

== ENCOUNTER → 2018-02-04 12:26 | Outpatient (REF) | payer MEDICARE, MEDICAID, SELFPAY ==
[2018-02-04 14:19] LABS: Amphetamine/Metha Screen,Urine Negative ng/mL (<1000); Barbiturates Screen,Urine Negative ng/mL (<200); Benzodiazepines Screen,Urine Positive ng/mL (200); Cannabinoid Screen,Urine Positive ng/mL (<50); Cocaine Screen,Urine Negative ng/g (<300); Methadone Screen,Urine Negative ng/mL (<300); Opiate Screen,Urine Positive ng/mL (<300); Phencyclidine Screen,Urine Negative ng/mL (<25)
== END ==
LOC: LAB 12:26
PROVIDERS: Visit Provider Emergency Medicine
DX: M54.5 Low back pain (principal)
CPT/HCPCS: 80305

== ENCOUNTER → 2018-02-10 14:00 | Outpatient (CLI) | payer MEDICARE, MEDICAID, SELFPAY ==
--- NOTE | 2018-02-10 14:03 | MR_ITS ---
MR lumbar spine wo con, MR 3-d myelogram/MRCP HISTORY: LBP with pain, numbness, and tingling down both legs. Symptoms XYRS. Weakness in LT leg. ITS.REASON: Back Pain ORDERING PHYSICIAN: Murray Chapman MD PATIENT AGE: 57 years COMPARISON: MRI 02-14-15 TECHNIQUE: Standard multiplanar multiecho sequences are performed without contrast. 3-D MIP and myelographic images are also rendered and reviewed FINDINGS: There is normal alignment. The spinal cord ends at the L1 level. L1-L2, L2-L3, and L3-L4 have an unremarkable appearance. There is minimal bulging disc at L4-L5 with mild facet hypertrophic change with mild bilateral foraminal narrowing. L5-S1: Mild concentric bulging disc along with mild facet and ligamentum flavum hypertrophy and mild bilateral foraminal narrowing. No extruded herniated disc or canal stenosis is evident. IMPRESSION: There is minimal bulging disc at L4-L5 with mild facet hypertrophic change with mild bilateral foraminal narrowing. Mild concentric bulging disc at L5-S1 along with mild facet and ligamentum flavum hypertrophy and mild bilateral foraminal narrowing. No extruded herniated disc or canal stenosis is evident
== END ==
PROVIDERS: Family Provider Family Medicine; PCP Emergency Medicine; Visit Provider Emergency Medicine
DX: M54.5 Low back pain (principal)
CPT/HCPCS: 72148; 76376

== ENCOUNTER → 2018-03-15 17:11 | Outpatient (REF) | payer MEDICARE, MEDICAID, SELFPAY | LOC: LAB 17:11 | PROVIDERS: Visit Provider Urology | DX: N30.20 Other chronic cystitis without hematuria (principal); R35.0 Frequency of micturition; N35.9 Urethral stricture, unspecified | CPT/HCPCS: 87086; 87088; 87186 ==

== ENCOUNTER → 2018-05-30 14:56 | Outpatient (CLI) | payer MEDICARE, MEDICAID, SELFPAY ==
--- NOTE | 2018-05-30 15:00 | MM_ITS ---
MM Dig screening mamm BI w/CAD ORDERING PHYSICIAN : Ayden Braden MD PATIENT AGE: 58 years GENDER: Female COMPARISON: December 1999 8:15, May 2016, 2014 and 2013. INDICATION: ITS.REASON: screening. No hormones. No new complaints. Noncontributory family history TECHNIQUE: Standard CC and MLO images were obtained. R2 CAD reviewed. Additional axillary cc view bilateral FINDINGS: Dense breast tissue most evident at central and upper outer quadrant portion of both breasts. Mild asymmetry. Mammography can is less sensitive in the regions of increased density breast tissue RIGHT BREAST:No significant new findings.. Stable appearance to the dense breast tissue with follow-up in one year adequate.. Stable ar intramammary lymph nodes densities lateral . LEFT BREAST: Small relatively stellate area labeled X at medial retroareolar region on the initial cc view is noted; but seems to dissipate on the subsequent axillary cc views. It was also slight increased density superior breast on MLO view in the same region. This is merely a fortuitous summation shadow but would suggest spot MLO and cc view of this area. be cautious in view of the relatively dense breast.Ultrasound survey left breast also suggested IMPRESSION: 1. Left breast. Additional spot views and ultrasound left breast recommended to address a Small small focal area of irregular density at medial breast on cc view, likely superior breast reviewed. More likely this is a summation shadow but warrants further evaluation 2. Dense breast bilaterally decreased sensitivity of mammography . 3. Right breast appears stable follow-up in one year BI-RADS Category: 0 Need Additional Imaging Evaluaiton RECOMMENDED FOLLOW-UP: IMM - IMMEDIATE FOLLOW-UP RECOMMENDED Spot views left breast with ultrasound (A letter has been sent to the patient regarding results of the study.)
== END ==
PROVIDERS: Family Provider Family Medicine; PCP Emergency Medicine; Visit Provider Obstetrics & Gynecology
DX: Z12.31 Encounter for screening mammogram for malignant neoplasm of breast (principal)
CPT/HCPCS: 77067

== ENCOUNTER → 2018-06-02 10:25 | Outpatient (CLI) | payer MEDICARE, MEDICAID, SELFPAY ==
--- NOTE | 2018-06-02 10:26 | XR_ITS ---
XR DEXA axial skeleton HISTORY: ITS.REASON: screening ORDERING PHYSICIAN: Ayden Braden MD PATIENT AGE: 58 years COMPARISON: 12/28/2014 FINDINGS: The BMD measured at the Right femoral neck is 0.655 g/cm squared with a T score of -2.8. This is considered Osteoporotic according to the World Health Organization criteria. Fracture risk is High. Treatment is advised. L1 L4 density has a T score of -2.5 with 1% increase in bone density from the previous exam. The mean density of the hips has increased by 5.5%. IMPRESSION: Osteoporosis with high fracture risk. Treatment recommended. Recommend follow-up exam in one year to monitor response to therapy
== END ==
PROVIDERS: Family Provider Family Medicine; PCP Emergency Medicine; Visit Provider Obstetrics & Gynecology
DX: Z78.0 Asymptomatic menopausal state (principal); Z13.820 Encounter for screening for osteoporosis
CPT/HCPCS: 77080

== ENCOUNTER → 2018-06-07 14:48 | Outpatient (CLI) | payer MEDICARE, MEDICAID, SELFPAY ==
--- NOTE | 2018-06-07 14:56 | US_ITS ---
MM Dig mamm DX unilat LT CAD, US breast LT complete INDICATION: Follow-up abnormal mammogram ORDERING PHYSICIAN: Ayden Braden MD PATIENT AGE: 58 years COMPARISON: 05/30/2018, 12/07/2017, 06/27/2009 TECHNIQUE: Problem solving views of the left breast along with left breast ultrasound FINDINGS: The asymmetric density in the medial aspect of the left breast does appear to compress out as fibroglandular tissue. The retroareolar density also appear to compress out. No malignant appearing mass or malignant appearing microcalcification. Left breast ultrasound: 3 mm cyst at 12:00, 6 x 2 mm cyst at 2:00, 5 x 2 mm cyst at 11:00. Small nodes in the axilla. Ductal ectasia in the retroareolar region IMPRESSION: Benign findings, no evidence of malignancy BI-RADS Category: 2 Benign Finding(s) RECOMMENDED FOLLOW-UP: 1YR - 1 YEAR FOLLOW-UP (A letter has been sent to the patient regarding results of the study.)
== END ==
PROVIDERS: Family Provider Family Medicine; PCP Emergency Medicine; Visit Provider Obstetrics & Gynecology
DX: R92.8 Other abnormal and inconclusive findings on diagnostic imaging of breast (principal)
CPT/HCPCS: 76641; 77065